=== PATIENT | male | born 1930 | race Caucasian/White ===

== ENCOUNTER 2016-08-24 13:20 | Emergency (ER) | payer MEDICARE ==
[~2016-08-24] VITALS: Ht 172.7 cm; Wt 77.3 kg
[~2016-08-24 13:20] MED LIST: ASCO100T11 PO; ASPI81TA3 PO; ATOR40TA69 PO; CHOL-4 PO; KRIL500C PO; LEVO50TA83 PO; MAGN400T4 PO; METO200T32 PO; OMEG1CAP25 PO; RIVA10TA PO; UBID50CA PO; VIT1TABL83 PO
[2016-08-24 13:24] VITALS: BP 117/80; PULSE 97; RESP 16; O2SAT 98
[2016-08-24] MEDS ORDERED: ATEN25TA PO (13:31)
[2016-08-24] MEDS ORDERED: DILT240C51 PO (13:31)
[2016-08-24] MEDS ORDERED: ASPI325T32 PO (13:31)
--- NOTE | 2016-08-24 13:43 | ED.REPORT ---
HPI-General Illness Date of Service Aug 24, 2016 ED Provider: Dr. Juan Haley MD An 86 year old male with a history of A-fib, hypertension, dyslipidemia, CAD and hypothyroidism presents to the ED complaining of flu like symptoms that began approx. 1.5 weeks ago. Patient's daughter reports worsening productive cough with white sputum over the past few days. Associated symptoms also include fever, chills, headache and general fatigue. He was sent from Urgent Care with concern for pneumonia. Recent sick contacts include his who was recently discharged after being diagnosed with pneumonia. Patient is currently taking diltiazem and his last dose was this morning. Nursing Notes Stated Complaint: VRI WORSE/ SENT FROM URGENT CARE Chief Complaint: FLU/Cold Symptoms Nursing Notes Reviewed: Yes Allergies: Coded Allergies: Penicillins (Verified Allergy, Severe, 08/24/16) codeine (Verified Allergy, Severe, 08/24/16) dabigatran etexilate mesylate (Verified Allergy, Intermediate, bleeding, ) Scheduled Ascorbic Acid (Vitamin C) 100 Mg Tablet 100 MG PO DAILY Atenolol (Atenolol) 25 Mg Tablet 25 MG PO QPM Cholecalciferol (Vitamin D3) (Vitamin D3) 10,000 Unit Capsule 10,000 UNIT PO DAILY Diltiazem ER (Cartia XT) 240 Mg Cap.er.24h 240 MG PO QPM Krill Oil (Krill Oil) 500 Mg Capsule 500 MG PO DAILY Levofloxacin (Levaquin) 750 Mg Tablet 750 MG PO Q2DAY Levothyroxine (Synthroid) 50 Mcg Tablet 50 MCG PO DAILY Magnesium Oxide (Magnesium Oxide) 400 Mg Tablet 400 MG PO DAILY Miscellaneous Medications Aspirin (Aspirin) 325 Mg Tablet 325 MG PO [place]-3 Fatty Acids/Fish Oil ([place] 3 Fish Oil Softgel) 1 Each Capsule.dr 1 EACH PO Ubidecarenone (Coenzyme Q10) 50 Mg Capsule 50 MG PO Vit B Comp/C/FA/Iron/Vit E (Vitamin B Complex Tablet) 1 Each Tablet 1 EACH PO General Time Seen by MD: 13:42 Chief Complaint Cough Hx Obtained From: Patient Arrived By: Walk-in Sudden in Onset?: No Onset Occurred: 1 week ago Symptom Duration: Since onset Associated with: Reports: Cough, Fever, Headache Pertinent Negative: Pt denies other symptoms Recent Healthcare: No recent hospitalization, Recent doctor visit Past Medical History Past Medical History 1. Hypertension. 2. Dyslipidemia. Previously, the patient had been taking simvastatin 40 mgq. h.s.; he is not currently taking this medication. 3. Coronary artery disease-see above. 4. Paroxysmal atrial fibrillation-see above. 5. Hypothyroidism. 6. History of pituitary tumor, causing acromegaly. 7. Previous kidney stones. 8. Previous left split retina, blind Left eye Past Surgical History PAST SURGICAL HISTORY: 1. History of removal of a renal mass in 2011. 2. History of attempt at retinal repair in , unsuccessful. 3. Pituitary tumor removed. 4. Kidney stone was removed. 5. History of left leg fracture with repair. 6. Tonsillectomy. 7. Hernia repair. 8. Mastoid surgeries as a child. 9. History of toe surgery. Family History The family is remarkably healthy. However, both parents were heavy smokers and of heart-related disease. Smoking History Never Smoker Social History The patient does not smoke or consume alcohol. He lives with his . He is reasonably active. Alcohol Use: Denies alcohol use Drug Use: Denies drug use Other Social History: Good social support, , Local resident Ambulatory Status Independent Review of Systems Full Review of Systems Constitutional: Reports: Chills, Fatigue, Fever Respiratory: Reports: Prod cough, white Cardiovascular: Denies: Chest pain GI: Denies: Abdominal pain, Nausea, Vomiting Neurologic: Reports: Headache, Denies: Change LOC Complete sys rev & neg: except as marked. Physical Exam Vital Signs Vital Signs Date Time Temp Pulse Resp B/P Pulse Ox O2 Delivery O2 Flow Rate FiO2 08/24/16 17:13 89 16 117/74 98 Room Air 08/24/16 16:50 94 16 116/78 98 Room Air 08/24/16 13:24 36.1 97 16 117/80 98 Room Air Initial VS: Reviewed Neck: Supple, Non-tender, Full range of motion Extremities: Vascular intact, Neuro intact, No swelling, No tenderness Skin: Warm, Dry, No cyanosis Neurologic: Alert, Oriented, Nonfocal Psychiatric: Mood/affect normal, Behavior normal, Normal thought content General/Constitutional: Awake, Alert, No acute distress Head / Eyes: Atraumatic, Normocephalic, PERRL Neck: Atraumatic, Supple, No JVD Respiratory / Chest: Atraumatic, Breath sounds NL, Breath sounds = bilat, No respiratory distress Cardiovascular: Heart rate NL, Regular rhythm, Heart sounds NL CARDIO: No lower extremity edema Abdomen: Atraumatic, Soft, Non-tender Interpretation & Diagnostics Lab Results Interpretation Result Diagram: 08/24/16 1411 08/24/16 1411 Test 08/24/16 14:11 08/24/16 15:49 White Blood Count 6.6th/mm3 (3.8-10.1) Red Blood Count 3.98mil/mm3 (4.40-5.80) Hemoglobin 13.1g/dL (13.8-17.2) Hematocrit 38.2% (41.0-50.0) Mean Corpuscular Volume 96.0fL (81-100) Mean Corpuscular Hemoglobin 32.9pg (27.0-35.0) Mean Corpuscular Hemoglobin Concent 34.3% (32.0-37.0) Red Cell Distribution Width 14.9% (12.3-15.4) Platelet Count 183bil/L (150-400) Neutrophils (%) (Auto) 68.0% (40-74) Lymphocytes (%) (Auto) 21.3% (14-46) Monocytes (%) (Auto) 7.9% (4-12) Eosinophils (%) (Auto) 2.3% (0-5) Basophils (%) (Auto) 0.3% (0-3) Hold Purple Top Tube Received (Received) Hold Blue Top Tube Received (Received) Sodium Level 138mEq/L (134-144) Potassium Level 4.4mEq/L (3.5-5.2) Chloride Level 102mEq/L (97-108) Carbon Dioxide Level 21mmol/L (18-29) Blood Urea Nitrogen 29mg/dL (8-27) Creatinine 1.64mg/dL (0.76-1.27) Estimat Glomerular Filtration Rate 42mL/min (>59) Glucose Level 100mg/dL (60-99) Calcium Level 8.5mg/dL (8.5-10.1) Total Bilirubin 0.4mg/dL (0.0-1.2) Aspartate Amino Transf (AST/SGOT) 19U/L (0-50) Alanine Aminotransferase (ALT/SGPT) 14U/L (0-44) Alkaline Phosphatase 69U/L (25-160) Total Protein 7.1g/dL (6.4-8.4) Albumin 3.8g/dL (3.4-5.0) Procalcitonin 0.06ng/mL (0.00-0.08) Hold [place] Top Tube Received (Received) Hold [place] Top Tube Received (Received) Troponin T < 0.010ug/L (0.0-0.011) ECG Interpretation ECG Interpretation: Atrial fibrillation Repol abnormality Rate 136 Time: 14:04 Interpreted by: ED physician Normal ECG Interpretation: No change from prior ECGs (05/05/15) X-Ray Chest Interpretation Chest Xray Interpretation: IMPRESSION: Bibasilar opacities suspicious for aspiration versus pneumonia. Dictated by: Melani Daniel MD, PhD on 08/24/2016 at 14:36 Interpretation / Wet Read by: Interpret - Radiologist Re-Eval/Medical Decision Med Decision/Clinical Course This is a generally well-appearing patient whose family has concerns for untreated pneumonia. He does have a A. fib with rapid ventricular response however had not taken his medications appropriately in the setting of chronic A. fib, I do not think that this is pathologic or life-threatening nature, he was treated with as low dose of IV Cardizem as well as a dose of oral Cardizem. He is ambulatory and well-appearing. His inflammatory markers are not remarkable, his troponin is negative, clinically this is not heart failure, overall his symptoms do not sound like pulmonary embolism and this seems unlikely. He will be started on Levaquin as he failed a azithromycin as an outpatient. However at this time he does not seem to meet criteria for inpatient management. He is agreeable to this as well as his family. They will follow closely with the primary care doctor and return to the ER if worse. Time of Eval: 15:32 Patient Status: Condition improved Re-Evaluation/Progress Note: Patient is rechecked. He is informed of his lab results, EKG results, chest X-ray results and diagnosis. All of the patient's questions are adressed. He understands and agrees with the treatment plan. Time of Eval: 16:10 Patient Status: Condition improved Re-Evaluation/Progress Note: Patient is rechecked. He reports that his is feeling much better and feels well enough to be discharged. Counseled Regarding: Diagnosis, Lab results, Need for follow-up, When/why to return to ED Discharge & Departure Primary Impression: Pneumonia Pneumonia type: due to unspecified organism Laterality: bilateral Lung location: unspecified part of lung Qualified Code: J18.9 - Pneumonia, unspecified organism Disposition: Home Discharge Condition All VS Reviewed: Yes Condition: Stable Patient Instructions: Community-acquired Pneumonia (ED) Additional Instructions: Thank you for trusting us with your care this afternoon. Your chest X-ray revealed possible pneumonia and your lab work is reassuring at this time. Please take levofloxacin as directed. Schedule a follow up with your primary care physician in the next 2-3 days for a recheck. Please return to the emergency department for any new or worsening conditions including any difficulty breathing, worsening fevers, dizziness, lightheadedness , or chest pain. Referrals: Khris Gonzalez MD (PCP) Scribe Attestation Portions of this note were transcribed by Blair Woodward. I, Dr. Kishan Haley personally performed the history, physical exam and medical decision-making; I reviewed and confirmed the accuracy of the information in the transcribed note. Signed by: Radha Castellanos, 08/24/16 [id number]. copies to: Khris Gonzalez MD, Timothy S DO Aug 24, 2016 13:43 BLAIR WOODWARD Aug 24, 2016 13:55
[2016-08-24] MEDS ORDERED: Diltiazem 5 mg/mL 5 mL Inj IVPUSH ONE (14:25)
--- NOTE | 2016-08-24 14:38 | DRSVH ---
PROCEDURE: X-RAY CHEST, TWO VIEWS ([id number]) INDICATIONS: cough, sputum TECHNIQUE: 2 views of the chest were acquired. COMPARISON: None. FINDINGS: Surgical changes and devices: None. Lungs and pleura: Trace bilateral pleural fluid collections noted. Patchy airspace opacities noted lung bases bilaterally concerning for aspiration versus pneumonia. Mediastinum: Mediastinal contours are normal. Heart size is normal. Bones and chest wall: No suspicious bony abnormalities. Soft tissues appear unremarkable. IMPRESSION: Bibasilar opacities suspicious for aspiration versus pneumonia. Dictated by: Melani Daniel MD, PhD on 08/24/2016 at 14:36 Approved by: Melani Daniel MD, PhD on 08/24/2016 at 14:37
[2016-08-24 14:58] LABS: BASOPHILS % (AUTO) 0.3 % (0-3); EOSINOPHILS % (AUTO) 2.3 % (0-5); MONOCYTES % (AUTO) 7.9 % (4-12); Mean Corpuscular Hemoglobin 32.9 pg (27.0-35.0); Platelet Count 183 bil/L (150-400)
[2016-08-24] MEDS ORDERED: 0.9% Sodium Chloride 500 ML IV ONE (15:40)
[2016-08-24] MEDS ORDERED: levoFLOXacin 750 mg Tablet PO ONE (16:40)
[2016-08-24 16:50] VITALS: BP 116/78; PULSE 94; RESP 16; O2SAT 98
[2016-08-24] MEDS ORDERED: LEVO750T9 PO (16:58)
[2016-08-24 17:13] VITALS: BP 117/74; PULSE 89; RESP 16; O2SAT 98
== END 2016-08-24 17:14 | disposition home or self-care (01) ==
LOC: SED 13:20
DX: J18.9 Pneumonia, unspecified organism (principal); I11.9 Hypertensive heart disease without heart failure; I48.91 Unspecified atrial fibrillation; I25.10 Atherosclerotic heart disease of native coronary artery without angina pectoris; E03.9 Hypothyroidism, unspecified; Z79.82 Long term (current) use of aspirin; Z88.0 Allergy status to penicillin; Z88.5 Allergy status to narcotic agent; Z88.8 Allergy status to other drugs, medicaments and biological substances
CPT/HCPCS: 36415; 71020; 80053; 84145; 84484; 85025; 93005; 96374; 99285; G0463; J7040